=== PATIENT | female | born 1995 | race Caucasian/White ===

== ENCOUNTER 2023-12-20 01:06 | Emergency (ER) | payer MEDICAID ==
[~2023-12-20] VITALS: Ht 149.9 cm; Wt 59.5 kg
[2023-12-20 01:29] VITALS: BP 93/46; PULSE 107; RESP 13; TEMP 98.5; O2SAT 100
== END 2023-12-20 02:58 | disposition home or self-care (01) ==
LOC: ER 02:27
DX: O26.892 Other specified pregnancy related conditions, second trimester (principal); R10.9 Unspecified abdominal pain; Z3A.25 25 weeks gestation of pregnancy
CPT/HCPCS: 99281